=== PATIENT | male | born 1950 | race Caucasian/White ===

== ENCOUNTER 2019-09-14 06:27 | Day surgery (SDC) | payer MEDICARE, MEDICAID ==
[~2019-09-14] VITALS: Ht 184.2 cm; Wt 73.6 kg
[2019-09-14] MEDS ORDERED: normal saline 1000ml 1,000 ML IV SCH ×2 (07:00→08:40)
[2019-09-14] MEDS ORDERED: MULT-1085 PO (07:05)
[2019-09-14] MEDS ORDERED: CLON-527 PO (07:05)
[2019-09-14] MEDS ORDERED: OMEP40CA13 PO (07:05)
[2019-09-14] MEDS ORDERED: LISI-600 PO (07:05)
[2019-09-14] MEDS ORDERED: HYDR-3972 PO (07:05)
[2019-09-14 07:28] VITALS: BP 127/59
[2019-09-14 07:37] LABS: BASOPHILS # (AUTO) 0.1 X10'3 (0-0.2); BASOPHILS % (AUTO) 1.2 % (0-1); EOSINOPHILS # (AUTO) 0.1 X10'3 (0-0.9); EOSINOPHILS % (AUTO) 0.9 % (0-6); HEMATOCRIT 25.2 % (42.0-52.0); LYMPHOCYTES # (AUTO) 1.4 X10'3 (1.1-4.8); LYMPHOCYTES % (AUTO) 11.3 % (21-51); MEAN CORPUSCULAR HEMOGLOBIN 24.3 PG (27.0-31.0); MEAN CORPUSCULAR HGB CONC 31.6 g/dL (33.0-36.5); MEAN CORPUSCULAR VOLUME 76.7 FL (78-98); MEAN PLATELET VOLUME 7.4 FL (7.4-10.4); MONOCYTES % (AUTO) 8.5 % (2-12); NEUTROPHILS # (AUTO) 9.4 X10'3 (1.8-7.7); NEUTROPHILS % (AUTO) 78.1 % (42-75); PLATELET COUNT 479 X10'3 (140-440); RED BLOOD COUNT 3.28 X10'6 (4.70-6.10); RED CELL DISTRIBUTION WIDTH 17.4 % (11.5-14.5)
[2019-09-14] MEDS ORDERED: heparin sodium, porcine/PF 100unit/ml 5ML syringe ONE (08:22)
[2019-09-14] MEDS ORDERED: LIDOcaine 1%/PF 5ML 10 MG/ML VIAL ONE (08:22)
[2019-09-14] MEDS ORDERED: midazolam 2 mg/2 ml injection ONE (08:22)
[2019-09-14] MEDS ORDERED: fentaNYL/PF 50MCG/1 ML 2ML syringe ONE (08:23)
[2019-09-14 09:30] VITALS: BP 133/63
[2019-09-14 09:33] VITALS: BP 137/65
--- NOTE | 2019-09-14 09:40 | NUR ---
contacted per pt request, pt has another appointment scheduled and lives out of town. VS signs reported, pt denies pain, denies sob. Pt site open to air, no drainage. no bleeding. new order, pt can discharge now.
[2019-09-14 09:45] VITALS: BP_SYST 130; BP_SYST 133; BP_DIAS 34; BP_DIAS 63
[2019-09-14 10:00] VITALS: BP 128/65
== END 2019-09-14 10:20 | disposition home or self-care (01) ==
LOC: SSTAY O 06:27
PROVIDERS: ATTEND Radiology Diagnostic Radiology
DX: C15.8 Malignant neoplasm of overlapping sites of esophagus (principal); F43.10 Post-traumatic stress disorder, unspecified; F41.9 Anxiety disorder, unspecified; F32.9 Major depressive disorder, single episode, unspecified; I10 Essential (primary) hypertension; D64.9 Anemia, unspecified; Z98.890 Other specified postprocedural states; Z79.899 Other long term (current) drug therapy; Z91.09 Other allergy status, other than to drugs and biological substances; Z87.891 Personal history of nicotine dependence; Z80.0 Family history of malignant neoplasm of digestive organs
CPT/HCPCS: 36415; 36561; 76937; 77001; 85025; 99152; 99153; C1769; C1788; C1894; J1642; J2250; J3010; J7030; A6213